=== PATIENT | female | born 1975 | race Caucasian/White ===

== ENCOUNTER 2020-11-01 09:45 | Outpatient (CLI) | payer BC, SELFPAY ==
--- NOTE | ~2020-11-01 | US_ITS ---
US axilla LT DATE: 11/01/2020 11:15 INDICATION: Palpable left axillary lump, recently decreasing in size and tenderness TECHNIQUE: Real-time and color flow imaging of the left axillary soft tissues COMPARISON: 11/01/2020 bilateral diagnostic digital mammogram FINDINGS: There are 2 left axillary lymph nodes identified in the region of complaint of palpable lum p, including one measuring approximately 7 x 19 mm and the other approximately 10 x 18 mm. The cortic es of the lymph nodes are again, prominent fatty faizan. No suspicious mass, vascularity or shadowing i s detected. IMPRESSION: BI-RADS Category 2: Benign Recommendation: Routine annual mammographic screening Reviewed, dictated and finalized at [facility]. Reviewed, dictated and finalized at [facility]. SSMENT SERVICES MANAGER
--- NOTE | ~2020-11-01 | MM_ITS ---
EXAMINATION: MM diagnostic [place] BI w samir HISTORY: Palpable left axillary lump, recently decreasing in size and tenderness TECHNIQUE: ML, MLO and craniocaudal 3-D tomosynthesis images of both breasts were performed and synth etic 2-D images were generated. Bilateral rotated lateral craniocaudal views. CAD analysis was submit sofia and interpreted. COMPARISON: 09/27/2019, 02/24/2017, 09/20/2015 bilateral digital screening mammogram examinations BREAST PARENCHYMAL COMPOSITION: There are scattered areas of fibroglandular density. FINDINGS: There are benign appearing relatively fatty lymph circumscribed nodes in left axilla, inclu ding one corresponding to the area of clinical complaint of lump recently diminishing in size and ten derness. Chronic benign calcified microhematoma on the right. Occasional scattered punctate microcalcification s of the breast. No malignant calcification, suspicious mass, architectural distortion, skin thickeni ng or retraction or significant new or developing density of either breast is evident. IMPRESSION: 1. No mammographic evidence of malignancy 2. Routine mammographic screening is recommended. BI-RADS Category 2: Benign finding(s). Reviewed, dictated and finalized at location [facility]. TAIN CLERK
== END 2020-11-01 09:46 ==
LOC: MICIMG 09:46
PROVIDERS: Visit Provider Advanced Practice Midwife
DX: R59.0 Localized enlarged lymph nodes (principal)
CPT/HCPCS: 76882; 77062; 77066; G0279

== ENCOUNTER → 2021-03-08 08:47 | Outpatient (CLI) | payer BC, SELFPAY ==
--- NOTE | ~2021-03-08 | MMUS_ITS ---
EXAMINATION: MM diagnostic [place] BI w samir, US breast LT complete HISTORY: Reported left breast lump on physical examination. Left breast pain, diminishing recently. TECHNIQUE: ML, MLO and craniocaudal 3-D tomosynthesis images of both breasts were performed and synth etic 2-D images were generated. CAD analysis was submitted and interpreted. High resolution complete left breast ultrasound was performed. COMPARISON: 11/01/2020 bilateral diagnostic digital mammography 09/27/2019, 02/24/2017 bilateral digital screening mammogram examinations BREAST PARENCHYMAL COMPOSITION: There are scattered areas of fibroglandular density. FINDINGS: MAMMOGRAPHIC FINDINGS: No suspicious mass, architectural distortion, malignant calcification, skin thickening or retraction of either breast is evident. ULTRASOUND: No suspicious mass or shadowing or other significant sonographic abnormality of the left breast is de tected. IMPRESSION: 1. No mammographic evidence of malignancy 2. Routine annual mammographic screening is recommended. BI-RADS Category 1: Negative Reviewed, dictated and finalized at location [facility]. IMPRESSION: 1. No mammographic evidence of malignancy 2. Routine annual mammographic screening is recommended. BI-RADS Category 1: Negative
== END ==
PROVIDERS: Visit Provider Advanced Practice Midwife
DX: N63.20 Unspecified lump in the left breast, unspecified quadrant (principal)
CPT/HCPCS: 76641; 77062; 77066; G0279

== ENCOUNTER 2024-08-20 13:36 | Outpatient (CLI) | payer BC, SELFPAY ==
--- NOTE | ~2024-08-20 | MR_ITS ---
EXAMINATION: MR abdomen wo/w con DATE: 08/20/2024 14:53 INDICATION: Pancreatic cyst. TECHNIQUE: Magnetic resonance imaging (MRI) of the abdomen was performed without and with 17 mL Multi Alexia intravenous contrast. COMPARISON: None. FINDINGS: The liver, gallbladder, spleen, adrenal glands, and kidneys are normal.. There is a 14 mm cyst in the pancreas without communication with the main pancreatic duct. The main pancreatic duct is normal in caliber. There are no dilated loops of bowel. There are no pathologically enlarged lymph nodes. There is no free intraperitoneal fluid. IMPRESSION: 1. 14 mm low risk pancreatic cyst. The differential diagnosis includes pseudocyst, intraductal papill rowena mucinous neoplasm (IPMN), mucinous cystic neoplasm (MCN), serous cystadenoma, and neuroendocrine tumor. Consider abdomen MRI without and with contrast in one year. Reviewed, dictated and finalized at location [facility]. IMPRESSION: 1. 14 mm low risk pancreatic cyst. The differential diagnosis includes pseudocy st, intraductal papillary mucinous neoplasm (IPMN), mucinous cystic neoplasm (M CN), serous cystadenoma, and neuroendocrine tumor. Consider abdomen MRI without and with contrast in one year.
== END 2024-08-20 13:37 | disposition home or self-care (01) ==
PROVIDERS: PCP Internal Medicine; Visit Provider Internal Medicine
DX: K86.2 Cyst of pancreas (principal)
CPT/HCPCS: 74183; A9577

== ENCOUNTER 2024-11-05 13:50 | Outpatient (CLI) | payer BC, SELFPAY ==
--- NOTE | ~2024-11-05 | MM_ITS ---
EXAMINATION: MM screening [place] BI w samir HISTORY: Screening TECHNIQUE: Craniocaudal and mediolateral oblique 3-D tomosynthesis images were obtained and synthetic 2-D images were generated. CAD analysis was submitted and interpreted. COMPARISON: Comparison to multiple prior studies sequentially, with oldest reviewed study dated 09/01. BREAST PARENCHYMAL COMPOSITION: Not dense: There are scattered areas of fibroglandular density. FINDINGS: There is no evidence of suspicious mass, calcification, or architectural distortion to sugg est malignancy in either breast. There has been no suspicious interval change. IMPRESSION: 1. No mammographic evidence of malignancy. 2. Recommend routine screening mammography in one year. BI-RADS Category 1: Negative Reviewed, dictated and finalized at location [facility]. 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
== END 2024-11-05 13:51 | disposition home or self-care (01) ==
PROVIDERS: PCP Internal Medicine; Visit Provider Internal Medicine
DX: Z12.31 Encounter for screening mammogram for malignant neoplasm of breast (principal)
CPT/HCPCS: 77063; 77067